=== PATIENT | male | born 1950 | race Caucasian/White ===

== ENCOUNTER 2016-06-09 19:52 | Inpatient (IN) | payer OTHER ==
[~2016-06-09] VITALS: Ht 182.9 cm; Wt 140.1 kg
[~2016-06-09 19:52] MED LIST: AFRIN,GENASAL D15 ML BOTH NARES; ALDACTONE25 MG; ALEVE220 M2 PO; ALEVE220 MG PO; ALLOPURINOL100 MG PO; ALLOPURINOL300 MG PO; ALTACE5 MG PO; AMLODIPINE-BEN1 EACH PO; AQUAPHOR OINTM105 GM; AQUAPHOR OINTM105 GM TP; AQUAPHOR TP; ASCORBIC ACID500 M3 PO; ASPIR 8181 M1 PO; ATARAX,VISTARIL25 M1 PO; ATARAX,VISTARIL25 MG PO; Allopurinol PO; BENADRYL25 MG PO; BENADRYL50 MG PO; BETIMOL 0.100 DROP/5 BOTH EYES; BYSTOLIC5 MG PO; CARDIZEM SR90 MG PO; CARDURA2 M1 PO; CEFEPIME-D2 GM/50 ML IV; CEFTRIAXONE2 G1 IV; CIPROFLOXACIN250 MG PO; CLEOCIN HCL150 MG PO; COREG12.5 M1 PO; COREG6.25 M1 PO; COZAAR100 MG PO; CUBICIN500 MG/10 IV; CYMBALTA60 MG PO; Colace PO; Cozaar PO; Cymbalta PO; DAILY VITAMIN1 EAC8 PO; DILTIAZEM ER60 MG PO; DILTIAZEM PO; DOCUSATE SODIU100 MG PO; DOLOPHINE HCL5 MG PO; DOXAZOSIN; ECOTRIN325 MG PO; ENDOCET 5-3251 EACH PO; Ecotrin PO; FLUOCINONIDE15 G1 TP; FUROSEMIDE40 MG PO; IODOSORB40 GM TP; IRON PO; IRON325 MG PO; KEFLEX500 MG PO; KENALOG,ARISTOC15 G2 PO; KENALOG,ARISTOC15 G2 TP; KENALOG,ARISTOC80 G1 TP; KETOCONAZOLE60 GM TP; KLOR-CON M2020 MEQ PO; LAMASIL; LASIX40 MG PO; LASIX80 MG PO; LEVOFLOXACIN750 MG PO; LEXAPRO10 MG PO; LIDEX 0.05% CRE60 GM TP; LOSARTAN POTASS50 MG PO; LUNESTA2 MG PO; LUNESTA3 MG PO; LYRICA200 MG PO; Lasix PO; Lunesta PO; METHADONE10 MG PO; METHADONE5 MG PO; MILK OF MAG W/360 ML PO; MILK OF MAGN PO; MILK OF MAGNESI10 ML PO; MORPHINE SULFAT15 MG PO; MULTIVITAMIN; NEURONTIN300 MG PO; NUVIGIL150 MG PO; OMEGA 3 FISH OIL; OXECTA5 MG PO; OXYCODONE HCL5 MG PO; PATANOL OP100 DROP/5 BOTH EYES; PERCOCET 5/31 TABLET PO; PHILLIPS'400 MG/5 M PO; PRADAXA150 MG PO; Pradaxa PO; RAMIPRIL5 MG PO; RESTORIL30 MG PO; ROCEPHIN 2 GM VI2 GM IV; ROXICODONE5 MG PO; SIMCOR 500-201 EACH PO; SIMCOR 500/21 TABLET PO; SPIRIVA1 INHALATI IH; TEMAZEPAM30 MG PO; TIMOLOL MALEATE15 M1 BOTH EYES; TIMOPTIC-0100 DROP/1 BOTH EYES; TOLTERODINE TART2 MG PO; TOPAMAX100 MG PO; TRIAMCINOLONE; VIT C; VITAMIN D250000 UNIT PO; VITAMIN D3400 UNI1 PO; WARFARIN SODIUM2 MG PO; XARELTO15 MG PO; XARELTO20 MG PO; ZYLOPRIM300 MG PO; Zocor PO
[2016-06-09 20:52] LABS: HEMATOCRIT 31.1 % (38.0-50.0); MCH 29.2 PG (29.0-34.0); MCHC 32.5 G/DL (30.0-36.0); MCV 89.9 FL (86-99); MEAN PLAT.VOLUME 9.2 uM^3 (9.0-12.4); PLATELET COUNT 119 K/uL (156-360); RBC DIS.WIDTH-CV 14.8 % (11.8-14.6); RBC DIS.WIDTH-SD 46.8 % (39-53); RED BLOOD COUNT 3.46 M/uL (4.00-5.50); WHITE BLOOD COUNT 6.9 K/uL (4.1-10.2)
[2016-06-09 21:03] LABS: CHLORIDE 72 mEq/L (99-109); POTASSIUM 2.8 mEq/L (3.7-5.4)
[2016-06-09 21:04] LABS: GLUCOSE 105 mg/dL (70-99)
[2016-06-09 21:05] LABS: SODIUM 95 mEq/L (136-147)
[2016-06-09 21:06] LABS: ANION GAP 1 MEQ/L (2-14)
[2016-06-09 21:08] LABS: GFR ESTIMATE (CALCULATED) 54 mL/min/
[2016-06-09 21:09] LABS: UREA NITROGEN (BUN) 31 mg/dL (9-23)
[2016-06-09 21:17] LABS: TROP-I INTERPRETATION NEGATIVE; TROPONIN-I 0.03 ng/mL (0.0-0.30)
[2016-06-09 22:50] LABS: GLUCOSE 106 mg/dL (70-99)
[2016-06-09 22:52] LABS: ANION GAP 8 MEQ/L (2-14)
[2016-06-09 22:54] LABS: GFR ESTIMATE (CALCULATED) 59 mL/min/
[2016-06-09 22:55] LABS: CHLORIDE 107 mEq/L (99-109); SODIUM 138 mEq/L (136-147); UREA NITROGEN (BUN) 29 mg/dL (9-23)
[2016-06-09 23:15] LABS: CREATININE 1.2 mg/dL (0.6-1.3); POTASSIUM 4.1 mEq/L (3.7-5.4)
[2016-06-09 23:41] LABS: CREATINE KINASE 158 IU/L (1-294)
[2016-06-09 23:45] LABS: ADD MIUA? NO; BILIRUBIN NEGATIVE; BLOOD NEGATIVE; COLOR YELLOW ((YELLOW)); GLUCOSE (STRIP) NEGATIVE; KETONES NEGATIVE; LEUKOCYTES NEGATIVE; NITRITE NEGATIVE; PROTEIN (STRIP) 30; SPECIFIC GRAVITY 1.016 (1.000-1.030); UCUL ADDED? NO; UROBILINOGEN 0.2 MG/DL (0.2-1.0)
[2016-06-10] VITALS (22 sets, daily range): BP systolic 0–201; BP diastolic 0–137
[2016-06-10 00:30] LABS: HEMATOCRIT 30.7 % (38.0-50.0); MCH 29.1 PG (29.0-34.0); MCHC 32.2 G/DL (30.0-36.0); MCV 90.3 FL (86-99); PLATELET COUNT 117 K/uL (156-360); RBC DIS.WIDTH-CV 14.8 % (11.8-14.6); RBC DIS.WIDTH-SD 46.9 % (39-53); WHITE BLOOD COUNT 6.2 K/uL (4.1-10.2)
[2016-06-10 00:33] LABS: EOSINOPHIL (%) 0.2 % (0-5); IMMATURE GRANULOCYTE (%) 0.6 % (0.0-0.7); IMMATURE GRANULOCYTE COUNT 0.4 K/uL; LYMPHOCYTE COUNT 0.4 K/uL (1.0-2.8); MONOCYTE (%) 3.9 % (3-12); MONOCYTE COUNT 0.2 K/uL (0-0.8); NEUTROPHIL (%) 88.1 % (45-76); NEUTROPHIL COUNT 5.4 K/uL (1.8-6.4)
[2016-06-10 02:10] LABS: METH RESISTANT S AUREUS PCR POSITIVE (NEGATIVE)
[2016-06-10 02:14] LABS: PROBE CHECK PASS
[2016-06-10] MEDS ORDERED: ALTACE5 MG PO ×2 (03:00→09:48)
[2016-06-10] MEDS ORDERED: BYSTOLIC5 MG PO (03:01)
[2016-06-10] MEDS ORDERED: ALTACE10 MG PO (03:01)
[2016-06-10] MEDS ORDERED: NUVIGIL150 MG PO (03:01)
[2016-06-10] MEDS ORDERED: CYMBALTA60 MG PO ×2 (03:04→03:27)
[2016-06-10] MEDS ORDERED: ZYLOPRIM100 MG PO (03:06)
[2016-06-10] MEDS ORDERED: OXYCODONE HCL10 MG PO (03:06)
[2016-06-10] MEDS ORDERED: SANCTURA20 MG PO ×2 (03:08→03:26)
[2016-06-10] MEDS ORDERED: TOPAMAX100 MG PO (03:08)
[2016-06-10] MEDS ORDERED: VITAMIN C500 M1 PO (03:09)
[2016-06-10] MEDS ORDERED: CARDURA4 MG PO (03:23)
[2016-06-10] MEDS ORDERED: METHADONE10 MG PO (03:23)
[2016-06-10] MEDS ORDERED: XARELTO20 MG PO (03:24)
[2016-06-10] MEDS ORDERED: COREG12.5 M1 PO (03:24)
[2016-06-10] MEDS ORDERED: ZINC50 M1 PO (03:25)
[2016-06-10] MEDS ORDERED: TIMOPTIC-0100 DROP/1 BOTH EYES (03:26)
[2016-06-10] MEDS ORDERED: MELATIN3 MG PO (03:27)
[2016-06-10 05:56] LABS: HEMATOCRIT 33.9 % (38.0-50.0); MCH 28.4 PG (29.0-34.0); MCHC 31.3 G/DL (30.0-36.0); MCV 90.9 FL (86-99); MEAN PLAT.VOLUME 9.4 uM^3 (9.0-12.4); PLATELET COUNT 98 K/uL (156-360); RBC DIS.WIDTH-CV 14.8 % (11.8-14.6); RBC DIS.WIDTH-SD 49.7 % (39-53); RED BLOOD COUNT 3.73 M/uL (4.00-5.50); WHITE BLOOD COUNT 7.5 K/uL (4.1-10.2)
[2016-06-10 06:18] LABS: ANION GAP 10 MEQ/L (2-14); CHLORIDE 105 MEQ/L (99-109); GFR ESTIMATE (CALCULATED) 59 mL/min/; GLUCOSE 101 mg/dL (70-99); POTASSIUM 3.7 MEQ/L (3.7-5.4); SAMPLE HEMOLYSIS CHECK 0; SAMPLE ICTERIC CHECK 0; SAMPLE LIPEMIA CHECK 0; SODIUM 135 MEQ/L (136-147); UREA NITROGEN (BUN) 28 mg/dL (9-23)
[2016-06-10 13:24] LABS: MAGNESIUM 2.3 mg/dl (1.3-2.7)
[2016-06-11] VITALS (8 sets, daily range): BP systolic 91–125; BP diastolic 50–77
[2016-06-12] VITALS (11 sets, daily range): BP systolic 127–206; BP diastolic 66–119
[2016-06-12 06:16] LABS: EOSINOPHIL (%) 2.8 % (0-5); EOSINOPHIL COUNT 0.2 K/uL (0-0.3); HEMATOCRIT 30.8 % (38.0-50.0); IMMATURE GRANULOCYTE (%) 0.4 % (0.0-0.7); LYMPHOCYTE COUNT 0.6 K/uL (1.0-2.8); MCH 28.3 PG (29.0-34.0); MCHC 31.8 G/DL (30.0-36.0); MEAN PLAT.VOLUME 9.6 uM^3 (9.0-12.4); MONOCYTE (%) 9.6 % (3-12); MONOCYTE COUNT 0.5 K/uL (0-0.8); NEUTROPHIL (%) 76.8 % (45-76); NEUTROPHIL COUNT 4.3 K/uL (1.8-6.4); PLATELET COUNT 113 K/uL (156-360); RBC DIS.WIDTH-CV 14.8 % (11.8-14.6); RBC DIS.WIDTH-SD 48.2 % (39-53); RED BLOOD COUNT 3.46 M/uL (4.00-5.50); WHITE BLOOD COUNT 5.6 K/uL (4.1-10.2)
[2016-06-12 06:42] LABS: ANION GAP 11 MEQ/L (2-14); CHLORIDE 104 MEQ/L (99-109); GFR ESTIMATE (CALCULATED) > 59 mL/min/; GLUCOSE 114 mg/dL (70-99); POTASSIUM 3.2 MEQ/L (3.7-5.4); SAMPLE HEMOLYSIS CHECK 0; SAMPLE ICTERIC CHECK 0; SAMPLE LIPEMIA CHECK 0; SODIUM 137 MEQ/L (136-147); UREA NITROGEN (BUN) 28 mg/dL (9-23)
[2016-06-13] VITALS: BP 135/63
[2016-06-13 04:00] VITALS: BP 187/72
[2016-06-13 06:09] LABS: HEMATOCRIT 32.2 % (38.0-50.0); MCHC 31.4 G/DL (30.0-36.0); MCV 89.2 FL (86-99); RBC DIS.WIDTH-CV 14.7 % (11.8-14.6); RBC DIS.WIDTH-SD 48.3 % (39-53); RED BLOOD COUNT 3.61 M/uL (4.00-5.50); WHITE BLOOD COUNT 6.3 K/uL (4.1-10.2)
[2016-06-13 06:32] LABS: BASOPHIL COUNT 0.1 K/uL (0-0.1); EOSINOPHIL (%) 2.8 % (0-5); EOSINOPHIL COUNT 0.2 K/uL (0-0.3); IMMATURE GRANULOCYTE (%) 1.1 % (0.0-0.7); IMMATURE GRANULOCYTE COUNT 0.1 K/uL; LYMPHOCYTE COUNT 0.9 K/uL (1.0-2.8); MEAN PLAT.VOLUME 9.6 uM^3 (9.0-12.4); MONOCYTE (%) 9.5 % (3-12); MONOCYTE COUNT 0.6 K/uL (0-0.8); NEUTROPHIL (%) 71.3 % (45-76); NEUTROPHIL COUNT 4.5 K/uL (1.8-6.4)
[2016-06-13 06:36] LABS: PLATELET COUNT 149 K/uL (156-360)
[2016-06-13 06:42] LABS: ANION GAP 9 MEQ/L (2-14); CHLORIDE 107 MEQ/L (99-109); GFR ESTIMATE (CALCULATED) > 59 mL/min/; GLUCOSE 105 mg/dL (70-99); POTASSIUM 3.4 MEQ/L (3.7-5.4); SAMPLE HEMOLYSIS CHECK 0; SAMPLE ICTERIC CHECK 0; SAMPLE LIPEMIA CHECK 0; SODIUM 137 MEQ/L (136-147); UREA NITROGEN (BUN) 23 mg/dL (9-23)
[2016-06-13 08:00] VITALS: BP 168/86
[2016-06-13 08:32] LABS: HEMATOLOGY COMMENT 1 SMEAR COMPATIBLE; USER ID STC
[2016-06-13 12:00] VITALS: BP 147/91
[2016-06-13 16:00] VITALS: BP 170/80
[2016-06-13 20:00] VITALS: BP 163/88
[2016-06-14] VITALS (9 sets, daily range): BP systolic 132–195; BP diastolic 75–112
[2016-06-15] VITALS (7 sets, daily range): BP systolic 99–171; BP diastolic 65–82
[2016-06-15 07:24] LABS: EOSINOPHIL (%) 6.1 % (0-5); EOSINOPHIL COUNT 0.6 K/uL (0-0.3); HEMATOCRIT 34.8 % (38.0-50.0); IMMATURE GRANULOCYTE (%) 1.6 % (0.0-0.7); IMMATURE GRANULOCYTE COUNT 0.2 K/uL; LYMPHOCYTE COUNT 1.4 K/uL (1.0-2.8); MCH 27.7 PG (29.0-34.0); MCHC 30.7 G/DL (30.0-36.0); MCV 90.2 FL (86-99); MEAN PLAT.VOLUME 9.5 uM^3 (9.0-12.4); MONOCYTE (%) 5.6 % (3-12); MONOCYTE COUNT 0.5 K/uL (0-0.8); NEUTROPHIL COUNT 6.7 K/uL (1.8-6.4); RBC DIS.WIDTH-CV 15.1 % (11.8-14.6); RBC DIS.WIDTH-SD 49.8 % (39-53); RED BLOOD COUNT 3.86 M/uL (4.00-5.50)
[2016-06-15 07:32] LABS: PLATELET COUNT 225 K/uL (156-360); WHITE BLOOD COUNT 9.4 K/uL (4.1-10.2)
[2016-06-15 07:34] LABS: ANION GAP 10 MEQ/L (2-14); CHLORIDE 109 MEQ/L (99-109); GFR ESTIMATE (CALCULATED) > 59 mL/min/; GLUCOSE 107 mg/dL (70-99); SAMPLE HEMOLYSIS CHECK 0; SAMPLE ICTERIC CHECK 0; SAMPLE LIPEMIA CHECK 0; SODIUM 140 MEQ/L (136-147); UREA NITROGEN (BUN) 24 mg/dL (9-23)
[2016-06-16 03:05] VITALS: BP 118/61
[2016-06-16 06:36] LABS: HEMATOCRIT 35.7 % (38.0-50.0); MCH 28.9 PG (29.0-34.0); MCHC 31.9 G/DL (30.0-36.0); MCV 90.6 FL (86-99); MEAN PLAT.VOLUME 9.5 uM^3 (9.0-12.4); PLATELET COUNT 255 K/uL (156-360); RED BLOOD COUNT 3.94 M/uL (4.00-5.50); WHITE BLOOD COUNT 10.4 K/uL (4.1-10.2)
[2016-06-16 06:59] LABS: ANION GAP 9 MEQ/L (2-14); CHLORIDE 107 MEQ/L (99-109); GFR ESTIMATE (CALCULATED) > 59 mL/min/; GLUCOSE 106 mg/dL (70-99); SAMPLE HEMOLYSIS CHECK 0; SAMPLE ICTERIC CHECK 0; SAMPLE LIPEMIA CHECK 0; SODIUM 137 MEQ/L (136-147); UREA NITROGEN (BUN) 28 mg/dL (9-23)
[2016-06-16 07:34] LABS: EOSINOPHIL (%) 4.1 % (0-5); EOSINOPHIL COUNT 0.4 K/uL (0-0.3); HEMATOLOGY COMMENT 1 SMEAR COMPATIBLE; IMMATURE GRANULOCYTE (%) 1.2 % (0.0-0.7); IMMATURE GRANULOCYTE COUNT 0.1 K/uL; LYMPHOCYTE COUNT 1.3 K/uL (1.0-2.8); MONOCYTE (%) 5.4 % (3-12); MONOCYTE COUNT 0.6 K/uL (0-0.8); NEUTROPHIL (%) 76.8 % (45-76); PLAT.SUFFICIENCY ADEQUATE
[2016-06-16 09:00] VITALS: BP 109/67
[2016-06-16 12:00] VITALS: BP 118/61
[2016-06-16 16:00] VITALS: BP 105/69
[2016-06-16 20:03] VITALS: BP 141/89
[2016-06-17] VITALS (7 sets, daily range): BP systolic 102–137; BP diastolic 68–82
[2016-06-17 09:08] LABS: HEMATOCRIT 34.1 % (38.0-50.0); MCH 27.9 PG (29.0-34.0); MCHC 31.1 G/DL (30.0-36.0); MCV 89.7 FL (86-99); MEAN PLAT.VOLUME 9.4 uM^3 (9.0-12.4); PLATELET COUNT 279 K/uL (156-360); RBC DIS.WIDTH-CV 14.9 % (11.8-14.6); RBC DIS.WIDTH-SD 49.1 % (39-53); WHITE BLOOD COUNT 9.6 K/uL (4.1-10.2)
[2016-06-17 09:37] LABS: ANION GAP 6 MEQ/L (2-14); CHLORIDE 106 MEQ/L (99-109); GFR ESTIMATE (CALCULATED) > 59 mL/min/; GLUCOSE 116 mg/dL (70-99); MAGNESIUM 2.5 mg/dl (1.3-2.7); POTASSIUM 4.2 MEQ/L (3.7-5.4); SAMPLE HEMOLYSIS CHECK 0; SAMPLE ICTERIC CHECK 0; SAMPLE LIPEMIA CHECK 0; SODIUM 136 MEQ/L (136-147); UREA NITROGEN (BUN) 28 mg/dL (9-23)
[2016-06-18 03:00] VITALS: BP 87/51
[2016-06-18 09:00] VITALS: BP 111/62
[2016-06-18 09:06] LABS: HEMATOCRIT 35.3 % (38.0-50.0); MCH 27.4 PG (29.0-34.0); MCV 91.2 FL (86-99); MEAN PLAT.VOLUME 8.8 uM^3 (9.0-12.4); PLATELET COUNT 284 K/uL (156-360); RBC DIS.WIDTH-CV 15.1 % (11.8-14.6); RBC DIS.WIDTH-SD 50.3 % (39-53); RED BLOOD COUNT 3.87 M/uL (4.00-5.50); WHITE BLOOD COUNT 10.6 K/uL (4.1-10.2)
[2016-06-18 09:21] LABS: ANION GAP 6 MEQ/L (2-14); CHLORIDE 102 MEQ/L (99-109); POTASSIUM 4.3 MEQ/L (3.7-5.4); SAMPLE HEMOLYSIS CHECK 0; SAMPLE ICTERIC CHECK 0; SAMPLE LIPEMIA CHECK 0; SODIUM 134 MEQ/L (136-147)
[2016-06-18 09:26] LABS: GFR ESTIMATE (CALCULATED) 59 mL/min/; GLUCOSE 116 mg/dL (70-99); UREA NITROGEN (BUN) 31 mg/dL (9-23)
[2016-06-18 12:42] VITALS: BP 110/59
[2016-06-18 15:38] LABS: C DIFF TOXIN NEGATIVE (NEGATIVE)
[2016-06-18 15:39] LABS: PROBE CHECK PASS; SPECIMEN PROCESSING CONTROL PASS
[2016-06-18 16:25] VITALS: BP 126/58
[2016-06-18 20:15] VITALS: BP 119/69
[2016-06-19] VITALS: BP 122/66
[2016-06-19 03:51] VITALS: BP 139/82
[2016-06-19 09:41] VITALS: BP 130/92
[2016-06-19 10:37] LABS: HEMATOCRIT 35.8 % (38.0-50.0); MCH 28.9 PG (29.0-34.0); MCHC 31.8 G/DL (30.0-36.0); MCV 90.9 FL (86-99); MEAN PLAT.VOLUME 9.2 uM^3 (9.0-12.4); PLATELET COUNT 317 K/uL (156-360); RBC DIS.WIDTH-CV 15.2 % (11.8-14.6); RBC DIS.WIDTH-SD 50.9 % (39-53); RED BLOOD COUNT 3.94 M/uL (4.00-5.50); WHITE BLOOD COUNT 8.8 K/uL (4.1-10.2)
[2016-06-19 11:02] LABS: ANION GAP 9 MEQ/L (2-14); CHLORIDE 105 MEQ/L (99-109); GFR ESTIMATE (CALCULATED) > 59 mL/min/; GLUCOSE 120 mg/dL (70-99); POTASSIUM 4.5 MEQ/L (3.7-5.4); SAMPLE HEMOLYSIS CHECK 0; SAMPLE ICTERIC CHECK 0; SAMPLE LIPEMIA CHECK 0; SODIUM 137 MEQ/L (136-147); UREA NITROGEN (BUN) 28 mg/dL (9-23)
[2016-06-19 15:41] VITALS: BP 140/78
[2016-06-19 20:00] VITALS: BP 127/89
[2016-06-20] VITALS: BP 127/69
[2016-06-20 08:32] VITALS: BP 129/66
[2016-06-20] MEDS ORDERED: AMLODIPINE BESY10 MG PO (11:16)
[2016-06-20] MEDS ORDERED: RAMIPRIL5 MG PO (11:16)
[2016-06-20] MEDS ORDERED: LEVETIRACETAM750 MG PO (11:16)
[2016-06-20] MEDS ORDERED: RAMIPRIL10 MG PO (11:16)
== END 2016-06-20 13:51 | DRG 871 ==
LOC: EME → EDBD 19:52 → EDOF 22:27 → 4WEST 22:27 → 4EAST 22:27 → 4WEST 06-10 00:48 → 4EAST 06-14 19:41 → 4SOUTH 06-18 16:12
PROVIDERS: Emergency Medicine; Internal Medicine; Internal Medicine Critical Care Medicine; Physician Assistant
DX: A40.9 Streptococcal sepsis, unspecified (principal); S06.6X9A Traumatic subarachnoid hemorrhage with loss of consciousness of unspecified duration, initial encounter; W19.XXXA Unspecified fall, initial encounter; L51.1 Stevens-Johnson syndrome; E87.1 Hypo-osmolality and hyponatremia; L03.116 Cellulitis of left lower limb; L97.921 Non-pressure chronic ulcer of unspecified part of left lower leg limited to breakdown of skin; L97.911 Non-pressure chronic ulcer of unspecified part of right lower leg limited to breakdown of skin; Y92.013 Bedroom of single-family (private) house as the place of occurrence of the external cause; I83.218 Varicose veins of right lower extremity with both ulcer of other part of lower extremity and inflammation; I83.228 Varicose veins of left lower extremity with both ulcer of other part of lower extremity and inflammation; Z68.41 Body mass index [BMI] 40.0-44.9, adult; I13.0 Hypertensive heart and chronic kidney disease with heart failure and stage 1 through stage 4 chronic kidney disease, or unspecified chronic kidney disease; N18.9 Chronic kidney disease, unspecified; I48.2 Chronic atrial fibrillation; M10.9 Gout, unspecified; I50.9 Heart failure, unspecified; G47.419 Narcolepsy without cataplexy; E66.01 Morbid (severe) obesity due to excess calories; Z95.0 Presence of cardiac pacemaker; R32 Unspecified urinary incontinence; D69.6 Thrombocytopenia, unspecified; Z89.421 Acquired absence of other right toe(s); L27.0 Generalized skin eruption due to drugs and medicaments taken internally; T36.1X5A Adverse effect of cephalosporins and other beta-lactam antibiotics, initial encounter; R56.9 Unspecified convulsions; S63.501A Unspecified sprain of right wrist, initial encounter; R25.1 Tremor, unspecified
CPT/HCPCS: 70450; 70496; 71010; 73110; 74000; 80047; 80048; 80048 91; 81003; 82550 91; 83605; 83735; 84100; 84484; 85025; 85027; 87040; 87077; 87493; 87641; 87801; 93005; 93306; 93971; 94799; 95819; 97530 GO; 97530 GP; 99281; 99285; J0696; J0878; J1200; J1940; J7030; J7050

== ENCOUNTER 2016-08-30 14:22 | Inpatient (IN) | payer OTHER ==
[~2016-08-30] VITALS: Ht 185.4 cm; Wt 134.9 kg
[~2016-08-30 14:22] MED LIST changes: +ALTACE10 MG PO; +AMLODIPINE BESY10 MG PO; +CARDURA4 MG PO; +LEVETIRACETAM750 MG PO; +MELATIN3 MG PO; +OXYCODONE HCL10 MG PO; +RAMIPRIL10 MG PO; +SANCTURA20 MG PO; +VITAMIN C500 M1 PO; +ZINC50 M1 PO; +ZYLOPRIM100 MG PO
[2016-08-30 15:30] LABS: EOSINOPHIL (%) 2.9 % (0-5); EOSINOPHIL COUNT 0.2 K/uL (0-0.3); HEMATOCRIT 31.4 % (38.0-50.0); IMMATURE GRANULOCYTE (%) 0.7 % (0.0-0.7); INSTRUMENT ABS NEUTROPHIL CT 4.5 K/uL; LYMPHOCYTE COUNT 0.7 K/uL (1.0-2.8); MCH 28.5 PG (29.0-34.0); MCHC 30.6 G/DL (30.0-36.0); MCV 93.2 FL (86-99); MEAN PLAT.VOLUME 8.5 uM^3 (9.0-12.4); MONOCYTE (%) 7.8 % (3-12); MONOCYTE COUNT 0.5 K/uL (0-0.8); NEUTROPHIL (%) 75.8 % (45-76); NEUTROPHIL COUNT 4.5 K/uL (1.8-6.4); PLATELET COUNT 133 K/uL (156-360); RBC DIS.WIDTH-CV 16.5 % (11.8-14.6); RBC DIS.WIDTH-SD 56.3 % (39-53); RED BLOOD COUNT 3.37 M/uL (4.00-5.50); WHITE BLOOD COUNT 5.9 K/uL (4.1-10.2)
[2016-08-30 15:41] LABS: CHLORIDE 109 mEq/L (99-109); POTASSIUM 4.8 mEq/L (3.7-5.4); SODIUM 140 mEq/L (136-147)
[2016-08-30 15:43] LABS: GLUCOSE 116 mg/dL (70-99)
[2016-08-30 15:45] LABS: ANION GAP 8 MEQ/L (2-14); TOTAL BILIRUBIN 0.5 mg/dL (0.0-1.0)
[2016-08-30 15:47] LABS: ALKALINE PHOSPHATASE 72 IU/L (3-129); GFR ESTIMATE (CALCULATED) 54 mL/min/
[2016-08-30 15:48] LABS: UREA NITROGEN (BUN) 26 mg/dL (9-23)
[2016-08-30 15:50] LABS: TROP-I INTERPRETATION NEGATIVE; TROPONIN-I < 0.01 ng/mL (0.0-0.30)
[2016-08-30 16:47] LABS: D-DIMER ELISA 2.59 mg/L FEU (< 0.57)
[2016-08-30] MEDS ORDERED: K-DUR10 MEQ PO (18:00)
[2016-08-30] MEDS ORDERED: SPIRIVA1 INHALATI IH (18:00)
[2016-08-30] MEDS ORDERED: OXYCODONE HCL20 M1 PO (18:00)
[2016-08-30] MEDS ORDERED: FUROSEMIDE40 MG PO (18:00)
[2016-08-30] MEDS ORDERED: AMLODIPINE BESY10 MG PO (18:01)
[2016-08-30] MEDS ORDERED: RAMIPRIL5 MG PO (18:02)
[2016-08-30] MEDS ORDERED: DETROL2 MG PO (18:04)
[2016-08-30] MEDS ORDERED: PHILLIPS'400 MG/5 M PO (18:06)
[2016-08-30] MEDS ORDERED: MUPIROCIN22 GM TP (18:07)
[2016-08-30 20:41] LABS: BASE EXCESS -2.5 mEq/L (-3 to +3); BICARBONATE 23.2 mEq/L (22-26); COMMENTS - BLOOD GASES A+C+; DEVICE HFNC; METHEMOGLOBIN 0.8 % (0-1.5); O2 FLOW 12 L/MIN; PCO2 43 mm Hg (35-45); PO2 60 mm Hg (80-100); SITE RR; TOTAL RESP RATE 30 resp/min; pH 7.34 (7.35-7.45)
[2016-08-30 22:38] VITALS: BP 136/91
[2016-08-30 23:33] LABS: METH RESISTANT S AUREUS PCR POSITIVE (NEGATIVE)
[2016-08-30 23:47] LABS: PROBE CHECK PASS
[2016-08-31 04:04] VITALS: BP 110/52
[2016-08-31 06:42] LABS: HEMATOCRIT 26.7 % (38.0-50.0); MCH 29.2 PG (29.0-34.0); MCHC 31.5 G/DL (30.0-36.0); MCV 92.7 FL (86-99); MEAN PLAT.VOLUME 8.7 uM^3 (9.0-12.4); PLATELET COUNT 111 K/uL (156-360); RBC DIS.WIDTH-CV 16.1 % (11.8-14.6); RBC DIS.WIDTH-SD 54.6 % (39-53); RED BLOOD COUNT 2.88 M/uL (4.00-5.50); WHITE BLOOD COUNT 4.6 K/uL (4.1-10.2)
[2016-08-31 08:31] VITALS: BP 152/74
[2016-08-31 09:29] LABS: ANION GAP 7 MEQ/L (2-14); CHLORIDE 107 MEQ/L (99-109); GFR ESTIMATE (CALCULATED) 59 mL/min/; POTASSIUM 4.8 MEQ/L (3.7-5.4); SAMPLE HEMOLYSIS CHECK 0; SAMPLE ICTERIC CHECK 0; SAMPLE LIPEMIA CHECK 0; SODIUM 137 MEQ/L (136-147); UREA NITROGEN (BUN) 26 mg/dL (9-23)
[2016-08-31 09:33] LABS: GLUCOSE 181 mg/dL (70-99)
[2016-08-31 13:33] VITALS: BP 133/72
[2016-08-31 15:12] LABS: INTER. NORMALIZED RATIO 1.2; PROTHROMBIN TIME 12.2 (9.2-11.2)
[2016-08-31 16:43] VITALS: BP 151/73
[2016-08-31 19:10] VITALS: BP 135/84
[2016-08-31 23:23] VITALS: BP 155/79
[2016-09-01 03:02] VITALS: BP 136/86
[2016-09-01 03:56] LABS: EOSINOPHIL (%) 0 % (0-5); HEMATOCRIT 29.1 % (38.0-50.0); IMMATURE GRANULOCYTE (%) 0.4 % (0.0-0.7); INSTRUMENT ABS NEUTROPHIL CT 4.3 K/uL; LYMPHOCYTE COUNT 0.7 K/uL (1.0-2.8); MCH 28.5 PG (29.0-34.0); MCHC 30.9 G/DL (30.0-36.0); MCV 92.1 FL (86-99); MEAN PLAT.VOLUME 8.7 uM^3 (9.0-12.4); MONOCYTE (%) 3.5 % (3-12); MONOCYTE COUNT 0.2 K/uL (0-0.8); NEUTROPHIL (%) 83.2 % (45-76); NEUTROPHIL COUNT 4.3 K/uL (1.8-6.4); PLATELET COUNT 130 K/uL (156-360); RBC DIS.WIDTH-CV 15.9 % (11.8-14.6); RBC DIS.WIDTH-SD 53.1 % (39-53); RED BLOOD COUNT 3.16 M/uL (4.00-5.50); WHITE BLOOD COUNT 5.1 K/uL (4.1-10.2)
[2016-09-01 04:20] LABS: CHLORIDE 108 mEq/L (99-109); POTASSIUM 4.8 mEq/L (3.7-5.4); SODIUM 139 mEq/L (136-147)
[2016-09-01 04:22] LABS: GLUCOSE 133 mg/dL (70-99)
[2016-09-01 04:23] LABS: ANION GAP 9 MEQ/L (2-14)
[2016-09-01 04:26] LABS: GFR ESTIMATE (CALCULATED) 59 mL/min/; UREA NITROGEN (BUN) 35 mg/dL (9-23)
[2016-09-01 08:40] VITALS: BP 154/88
[2016-09-01 12:56] VITALS: BP 141/72
[2016-09-01 16:35] VITALS: BP 157/78
[2016-09-01 20:18] VITALS: BP 137/74
[2016-09-02 00:38] VITALS: BP 170/76
[2016-09-02 05:04] VITALS: BP 142/67
[2016-09-02 07:48] LABS: EOSINOPHIL (%) 0 % (0-5); HEMATOCRIT 29.6 % (38.0-50.0); IMMATURE GRANULOCYTE (%) 0.6 % (0.0-0.7); INSTRUMENT ABS NEUTROPHIL CT 5.2 K/uL; MCHC 31.4 G/DL (30.0-36.0); MCV 92.2 FL (86-99); MEAN PLAT.VOLUME 9.5 uM^3 (9.0-12.4); MONOCYTE (%) 6.1 % (3-12); MONOCYTE COUNT 0.4 K/uL (0-0.8); NEUTROPHIL (%) 78.1 % (45-76); NEUTROPHIL COUNT 5.2 K/uL (1.8-6.4); PLATELET COUNT 157 K/uL (156-360); RBC DIS.WIDTH-CV 16.2 % (11.8-14.6); RBC DIS.WIDTH-SD 54.1 % (39-53); RED BLOOD COUNT 3.21 M/uL (4.00-5.50)
[2016-09-02 07:52] LABS: WHITE BLOOD COUNT 6.7 K/uL (4.1-10.2)
[2016-09-02 08:08] LABS: ANION GAP 8 MEQ/L (2-14); CHLORIDE 106 MEQ/L (99-109); GFR ESTIMATE (CALCULATED) > 59 mL/min/; GLUCOSE 109 mg/dL (70-99); SAMPLE HEMOLYSIS CHECK 0; SAMPLE ICTERIC CHECK 0; SAMPLE LIPEMIA CHECK 0; SODIUM 138 MEQ/L (136-147); UREA NITROGEN (BUN) 37 mg/dL (9-23)
[2016-09-02 08:47] VITALS: BP 159/90
[2016-09-02 12:39] VITALS: BP 138/82
[2016-09-02 17:56] VITALS: BP 152/88
[2016-09-02 20:00] VITALS: BP 133/74
[2016-09-03] VITALS: BP 144/78
[2016-09-03 04:30] VITALS: BP 170/80
[2016-09-03 06:16] LABS: EOSINOPHIL (%) 0 % (0-5); HEMATOCRIT 29.9 % (38.0-50.0); IMMATURE GRANULOCYTE (%) 1.3 % (0.0-0.7); IMMATURE GRANULOCYTE COUNT 0.1 K/uL; INSTRUMENT ABS NEUTROPHIL CT 4.7 K/uL; MCH 28.1 PG (29.0-34.0); MCHC 31.1 G/DL (30.0-36.0); MCV 90.3 FL (86-99); MEAN PLAT.VOLUME 8.9 uM^3 (9.0-12.4); MONOCYTE (%) 7.8 % (3-12); MONOCYTE COUNT 0.5 K/uL (0-0.8); NEUTROPHIL (%) 74.8 % (45-76); NEUTROPHIL COUNT 4.7 K/uL (1.8-6.4); PLATELET COUNT 148 K/uL (156-360); RBC DIS.WIDTH-CV 15.9 % (11.8-14.6); RBC DIS.WIDTH-SD 52.8 % (39-53); RED BLOOD COUNT 3.31 M/uL (4.00-5.50); WHITE BLOOD COUNT 6.3 K/uL (4.1-10.2)
[2016-09-03 06:40] LABS: ANION GAP 8 MEQ/L (2-14); CHLORIDE 104 MEQ/L (99-109); GFR ESTIMATE (CALCULATED) > 59 mL/min/; GLUCOSE 121 mg/dL (70-99); POTASSIUM 4.2 MEQ/L (3.7-5.4); SAMPLE HEMOLYSIS CHECK 0; SAMPLE ICTERIC CHECK 0; SAMPLE LIPEMIA CHECK 0; SODIUM 136 MEQ/L (136-147); UREA NITROGEN (BUN) 39 mg/dL (9-23)
[2016-09-03 07:45] VITALS: BP 156/85
[2016-09-03 12:42] VITALS: BP 156/87
[2016-09-03 16:58] VITALS: BP 132/72
[2016-09-03 18:55] VITALS: BP 128/68
[2016-09-04 00:35] VITALS: BP 132/60
[2016-09-04 06:52] LABS: EOSINOPHIL (%) 0.3 % (0-5); HEMATOCRIT 30.8 % (38.0-50.0); IMMATURE GRANULOCYTE (%) 1.7 % (0.0-0.7); IMMATURE GRANULOCYTE COUNT 0.1 K/uL; INSTRUMENT ABS NEUTROPHIL CT 4.1 K/uL; LYMPHOCYTE COUNT 1.3 K/uL (1.0-2.8); MCH 28.4 PG (29.0-34.0); MCHC 31.5 G/DL (30.0-36.0); MCV 90.1 FL (86-99); MEAN PLAT.VOLUME 9.3 uM^3 (9.0-12.4); MONOCYTE (%) 10.1 % (3-12); MONOCYTE COUNT 0.6 K/uL (0-0.8); NEUTROPHIL (%) 66.7 % (45-76); NEUTROPHIL COUNT 4.1 K/uL (1.8-6.4); NRBC (%) 0.5 /100 WBC (0-0); PLATELET COUNT 130 K/uL (156-360); RBC DIS.WIDTH-CV 15.8 % (11.8-14.6); RBC DIS.WIDTH-SD 51.3 % (39-53); RED BLOOD COUNT 3.42 M/uL (4.00-5.50); WHITE BLOOD COUNT 6.1 K/uL (4.1-10.2)
[2016-09-04 07:15] LABS: ANION GAP 5 MEQ/L (2-14); CHLORIDE 103 MEQ/L (99-109); GFR ESTIMATE (CALCULATED) > 59 mL/min/; SAMPLE HEMOLYSIS CHECK 0; SAMPLE ICTERIC CHECK 0; SAMPLE LIPEMIA CHECK 0; SODIUM 138 MEQ/L (136-147); UREA NITROGEN (BUN) 37 mg/dL (9-23)
[2016-09-04 07:18] LABS: GLUCOSE 90 mg/dL (70-99)
[2016-09-04 10:32] VITALS: BP 138/84
[2016-09-04 11:43] VITALS: BP 144/90
[2016-09-04 16:33] VITALS: BP 130/76
[2016-09-04 20:55] VITALS: BP 132/68
[2016-09-04 23:50] VITALS: BP 120/70
[2016-09-05 04:00] VITALS: BP 124/64
[2016-09-05 06:21] LABS: EOSINOPHIL (%) 0.4 % (0-5); IMMATURE GRANULOCYTE (%) 1.6 % (0.0-0.7); IMMATURE GRANULOCYTE COUNT 0.1 K/uL; INSTRUMENT ABS NEUTROPHIL CT 4.9 K/uL; LYMPHOCYTE COUNT 1.2 K/uL (1.0-2.8); MCH 28.4 PG (29.0-34.0); MCHC 31.6 G/DL (30.0-36.0); MCV 89.9 FL (86-99); MEAN PLAT.VOLUME 9.4 uM^3 (9.0-12.4); MONOCYTE (%) 11.1 % (3-12); MONOCYTE COUNT 0.8 K/uL (0-0.8); NEUTROPHIL (%) 70.2 % (45-76); NEUTROPHIL COUNT 4.9 K/uL (1.8-6.4); NRBC (%) 0.3 /100 WBC (0-0); PLATELET COUNT 141 K/uL (156-360); RBC DIS.WIDTH-CV 15.7 % (11.8-14.6); RBC DIS.WIDTH-SD 51.3 % (39-53); RED BLOOD COUNT 3.45 M/uL (4.00-5.50)
[2016-09-05 06:57] LABS: ANION GAP 6 MEQ/L (2-14); CHLORIDE 102 MEQ/L (99-109); GFR ESTIMATE (CALCULATED) > 59 mL/min/; SAMPLE HEMOLYSIS CHECK 0; SAMPLE ICTERIC CHECK 0; SAMPLE LIPEMIA CHECK 0; SODIUM 135 MEQ/L (136-147); UREA NITROGEN (BUN) 39 mg/dL (9-23)
[2016-09-05 07:01] LABS: GLUCOSE 113 mg/dL (70-99)
[2016-09-05 09:15] VITALS: BP 124/72
[2016-09-05 11:56] VITALS: BP 104/62
[2016-09-05 17:03] VITALS: BP 108/64
[2016-09-05 19:40] VITALS: BP 136/72
[2016-09-06 00:30] VITALS: BP 128/76
[2016-09-06 03:45] VITALS: BP 142/76
[2016-09-06 07:35] VITALS: BP 135/81
[2016-09-06] MEDS ORDERED: XARELTO15 MG PO (12:11)
[2016-09-06] MEDS ORDERED: NYSTATIN15 GM TP (12:12)
[2016-09-06] MEDS ORDERED: FAMOTIDINE20 MG PO (12:12)
[2016-09-06] MEDS ORDERED: LEVAQUIN750 MG PO (12:14)
== END 2016-09-06 13:40 | disposition home health service (06) | DRG 175 ==
LOC: EME 14:22 → EDOF 20:30 → 4EAST 20:30
PROVIDERS: Emergency Medicine; Hospitalist; Internal Medicine
DX: I26.99 Other pulmonary embolism without acute cor pulmonale (principal); J96.01 Acute respiratory failure with hypoxia; I50.33 Acute on chronic diastolic (congestive) heart failure; J18.9 Pneumonia, unspecified organism; I27.2 Other secondary pulmonary hypertension; I82.531 Chronic embolism and thrombosis of right popliteal vein; J44.0 Chronic obstructive pulmonary disease with (acute) lower respiratory infection; Z95.828 Presence of other vascular implants and grafts; Z86.73 Personal history of transient ischemic attack (TIA), and cerebral infarction without residual deficits; Z95.0 Presence of cardiac pacemaker; L10.89 Other pemphigus; E66.01 Morbid (severe) obesity due to excess calories; Z68.41 Body mass index [BMI] 40.0-44.9, adult; J44.1 Chronic obstructive pulmonary disease with (acute) exacerbation; I87.8 Other specified disorders of veins; I13.0 Hypertensive heart and chronic kidney disease with heart failure and stage 1 through stage 4 chronic kidney disease, or unspecified chronic kidney disease; L03.116 Cellulitis of left lower limb; L03.115 Cellulitis of right lower limb; Z89.421 Acquired absence of other right toe(s); I89.0 Lymphedema, not elsewhere classified; I83.208 Varicose veins of unspecified lower extremity with both ulcer of other part of lower extremity and inflammation; L97.811 Non-pressure chronic ulcer of other part of right lower leg limited to breakdown of skin; L97.821 Non-pressure chronic ulcer of other part of left lower leg limited to breakdown of skin; Y95 Nosocomial condition; I48.2 Chronic atrial fibrillation; G62.9 Polyneuropathy, unspecified; S06.6X9D Traumatic subarachnoid hemorrhage with loss of consciousness of unspecified duration, subsequent encounter; W13.4XXD Fall from, out of or through window, subsequent encounter; E78.5 Hyperlipidemia, unspecified; G47.33 Obstructive sleep apnea (adult) (pediatric); Z91.19 Patient's noncompliance with other medical treatment and regimen; I25.10 Atherosclerotic heart disease of native coronary artery without angina pectoris; Z87.891 Personal history of nicotine dependence; D69.6 Thrombocytopenia, unspecified; N18.3 Chronic kidney disease, stage 3 (moderate); I77.819 Aortic ectasia, unspecified site; G89.29 Other chronic pain
CPT/HCPCS: 36600; 71010; 71020; 78582; 80048; 80053; 82803; 83605; 83735; 84484; 85025; 85027; 85379; 85610; 85730; 87040; 87641; 93005; 93970; 94640; 94640 76; 94660; 94760; 94799; 99202; 99281; 99285; A6260; A9540; A9567; J0456; J0692; J1940; J2930; J7050; J7512

== ENCOUNTER 2016-11-08 13:57 | Inpatient (IN) | payer OTHER ==
[~2016-11-08] VITALS: Ht 185.4 cm; Wt 144.9 kg
[~2016-11-08 13:57] MED LIST changes: +DETROL2 MG PO; +FAMOTIDINE20 MG PO; +K-DUR10 MEQ PO; +LEVAQUIN750 MG PO; +MUPIROCIN22 GM TP; +NYSTATIN15 GM TP; +OXYCODONE HCL20 M1 PO
[2016-11-08 14:47] LABS: EOSINOPHIL (%) 1.9 % (0-5); EOSINOPHIL COUNT 0.2 K/uL (0-0.3); HEMATOCRIT 32.7 % (38.0-50.0); IMMATURE GRANULOCYTE (%) 0.5 % (0.0-0.7); INSTRUMENT ABS NEUTROPHIL CT 6.9 K/uL; LYMPHOCYTE COUNT 0.9 K/uL (1.0-2.8); MCH 28.1 PG (29.0-34.0); MCHC 32.1 G/DL (30.0-36.0); MCV 87.4 FL (86-99); MEAN PLAT.VOLUME 8.9 uM^3 (9.0-12.4); MONOCYTE (%) 6.6 % (3-12); MONOCYTE COUNT 0.6 K/uL (0-0.8); NEUTROPHIL (%) 79.9 % (45-76); NEUTROPHIL COUNT 6.9 K/uL (1.8-6.4); PLATELET COUNT 130 K/uL (156-360); RBC DIS.WIDTH-CV 14.7 % (11.8-14.6); RBC DIS.WIDTH-SD 47.1 % (39-53); RED BLOOD COUNT 3.74 M/uL (4.00-5.50); WHITE BLOOD COUNT 8.6 K/uL (4.1-10.2)
[2016-11-08 14:54] LABS: CHLORIDE 101 mEq/L (99-109); POTASSIUM 4.9 mEq/L (3.7-5.4); SODIUM 136 mEq/L (136-147)
[2016-11-08 14:55] LABS: GLUCOSE 139 mg/dL (70-99)
[2016-11-08 14:57] LABS: ANION GAP 10 MEQ/L (2-14)
[2016-11-08 14:59] LABS: GFR ESTIMATE (CALCULATED) 46 mL/min/
[2016-11-08 15:00] LABS: UREA NITROGEN (BUN) 28 mg/dL (9-23)
[2016-11-08] MEDS ORDERED: XARELTO20 MG PO (17:31)
[2016-11-08] MEDS ORDERED: COREG12.5 M1 PO (17:32)
[2016-11-08 17:33] LABS: TROP-I INTERPRETATION NEGATIVE; TROPONIN-I < 0.01 ng/mL (0.0-0.30)
[2016-11-08] MEDS ORDERED: INCRUSE ELLI62.5 MCG IH (17:33)
[2016-11-08 18:22] VITALS: BP 121/65
[2016-11-08 23:44] VITALS: BP 94/54
[2016-11-08 23:47] LABS: TROP-I INTERPRETATION NEGATIVE; TROPONIN-I 0.01 ng/mL (0.0-0.30)
[2016-11-09 05:07] LABS: EOSINOPHIL (%) 2.3 % (0-5); EOSINOPHIL COUNT 0.2 K/uL (0-0.3); HEMATOCRIT 29.9 % (38.0-50.0); IMMATURE GRANULOCYTE (%) 0.6 % (0.0-0.7); IMMATURE GRANULOCYTE COUNT 0.1 K/uL; INSTRUMENT ABS NEUTROPHIL CT 6.3 K/uL; MCH 29.2 PG (29.0-34.0); MCHC 32.8 G/DL (30.0-36.0); MEAN PLAT.VOLUME 9.3 uM^3 (9.0-12.4); MONOCYTE COUNT 0.6 K/uL (0-0.8); NEUTROPHIL (%) 77.4 % (45-76); NEUTROPHIL COUNT 6.3 K/uL (1.8-6.4); PLATELET COUNT 130 K/uL (156-360); RBC DIS.WIDTH-CV 14.9 % (11.8-14.6); RBC DIS.WIDTH-SD 48.4 % (39-53); RED BLOOD COUNT 3.36 M/uL (4.00-5.50); WHITE BLOOD COUNT 8.1 K/uL (4.1-10.2)
[2016-11-09 05:26] LABS: TROP-I INTERPRETATION NEGATIVE; TROPONIN-I 0.01 ng/mL (0.0-0.30)
[2016-11-09 05:39] LABS: ANION GAP 8 MEQ/L (2-14); CHLORIDE 103 MEQ/L (99-109); GFR ESTIMATE (CALCULATED) 50 mL/min/; GLUCOSE 155 mg/dL (70-99); POTASSIUM 4.6 MEQ/L (3.7-5.4); SAMPLE HEMOLYSIS CHECK 0; SAMPLE ICTERIC CHECK 0; SAMPLE LIPEMIA CHECK 0; SODIUM 135 MEQ/L (136-147); UREA NITROGEN (BUN) 27 mg/dL (9-23)
[2016-11-09 07:51] LABS: ADD MIUA? NO; BILIRUBIN NEGATIVE; BLOOD NEGATIVE; COLOR YELLOW ((YELLOW)); GLUCOSE (STRIP) NEGATIVE; KETONES NEGATIVE; LEUKOCYTES NEGATIVE; NITRITE NEGATIVE; PROTEIN (STRIP) NEGATIVE; SPECIFIC GRAVITY 1.019 (1.000-1.030); UCUL ADDED? NO; UROBILINOGEN 0.2 MG/DL (0.2-1.0)
[2016-11-09 08:22] LABS: INTERNAL CONTROL VALID? YES
[2016-11-09 09:01] VITALS: BP 110/68
[2016-11-09 14:59] LABS: ANION GAP 7 MEQ/L (2-14); CHLORIDE 103 MEQ/L (99-109); GFR ESTIMATE (CALCULATED) 54 mL/min/; GLUCOSE 138 mg/dL (70-99); POTASSIUM 4.7 MEQ/L (3.7-5.4); SAMPLE HEMOLYSIS CHECK 0; SAMPLE ICTERIC CHECK 0; SAMPLE LIPEMIA CHECK 0; SODIUM 135 MEQ/L (136-147); UREA NITROGEN (BUN) 28 mg/dL (9-23)
[2016-11-09 15:38] VITALS: BP 116/70
[2016-11-09 23:49] VITALS: BP 100/50
[2016-11-10 06:23] LABS: HEMATOCRIT 26.4 % (38.0-50.0); MCH 28.4 PG (29.0-34.0); MCHC 31.8 G/DL (30.0-36.0); MCV 89.2 FL (86-99); MEAN PLAT.VOLUME 9.7 uM^3 (9.0-12.4); PLATELET COUNT 116 K/uL (156-360); RBC DIS.WIDTH-CV 14.8 % (11.8-14.6); RBC DIS.WIDTH-SD 48.2 % (39-53); RED BLOOD COUNT 2.96 M/uL (4.00-5.50); WHITE BLOOD COUNT 6.4 K/uL (4.1-10.2)
[2016-11-10 07:00] LABS: ANION GAP 6 MEQ/L (2-14); CHLORIDE 103 MEQ/L (99-109); GFR ESTIMATE (CALCULATED) 54 mL/min/; POTASSIUM 4.6 MEQ/L (3.7-5.4); SAMPLE HEMOLYSIS CHECK 0; SAMPLE ICTERIC CHECK 0; SAMPLE LIPEMIA CHECK 0; SODIUM 133 MEQ/L (136-147); UREA NITROGEN (BUN) 32 mg/dL (9-23)
[2016-11-10 07:03] LABS: GLUCOSE 99 mg/dL (70-99)
[2016-11-10 08:10] VITALS: BP 102/58
[2016-11-10 10:02] LABS: INTERNAL CONTROL VALID? YES
[2016-11-10 12:47] LABS: TROP-I INTERPRETATION NEGATIVE; TROPONIN-I < 0.01 ng/mL (0.0-0.30)
[2016-11-10 16:18] VITALS: BP 114/66
[2016-11-11] VITALS: BP 130/55
[2016-11-11 07:36] VITALS: BP 113/66
[2016-11-11 08:50] LABS: MCH 28.5 PG (29.0-34.0); MCHC 32.2 G/DL (30.0-36.0); MCV 88.5 FL (86-99); MEAN PLAT.VOLUME 9.1 uM^3 (9.0-12.4); PLATELET COUNT 118 K/uL (156-360); RBC DIS.WIDTH-CV 14.7 % (11.8-14.6); RBC DIS.WIDTH-SD 47.6 % (39-53); RED BLOOD COUNT 3.05 M/uL (4.00-5.50); WHITE BLOOD COUNT 5.3 K/uL (4.1-10.2)
[2016-11-11 09:05] LABS: ANION GAP 6 MEQ/L (2-14); CHLORIDE 104 MEQ/L (99-109); POTASSIUM 4.4 MEQ/L (3.7-5.4); SAMPLE HEMOLYSIS CHECK 0; SAMPLE ICTERIC CHECK 0; SAMPLE LIPEMIA CHECK 0; SODIUM 132 MEQ/L (136-147)
[2016-11-11 09:11] LABS: GFR ESTIMATE (CALCULATED) > 59 mL/min/; GLUCOSE 103 mg/dL (70-99); UREA NITROGEN (BUN) 27 mg/dL (9-23)
[2016-11-11 15:10] VITALS: BP 119/64
[2016-11-12] VITALS: BP 101/58
[2016-11-12 08:16] VITALS: BP 119/73
[2016-11-12 08:45] LABS: ANION GAP 7 MEQ/L (2-14); CHLORIDE 106 MEQ/L (99-109); GFR ESTIMATE (CALCULATED) > 59 mL/min/; GLUCOSE 109 mg/dL (70-99); POTASSIUM 4.8 MEQ/L (3.7-5.4); SAMPLE HEMOLYSIS CHECK 0; SAMPLE ICTERIC CHECK 0; SAMPLE LIPEMIA CHECK 0; SODIUM 136 MEQ/L (136-147); UREA NITROGEN (BUN) 23 mg/dL (9-23)
[2016-11-12] MEDS ORDERED: LEVAQUIN750 MG PO (09:49)
[2016-11-12] MEDS ORDERED: OXYCODONE HCL20 M1 PO (12:25)
== END 2016-11-12 17:44 | disposition home health service (06) | DRG 193 ==
LOC: EME 13:57 → 5SOUTH 16:12 → EDOF 16:12 → 5SOUTH 17:43
PROVIDERS: Emergency Medicine; Internal Medicine; Nurse Practitioner Adult Health; Physician Assistant Medical
PROC: 5A09357 Assistance with Respiratory Ventilation, Less than 24 Consecutive Hours, Continuous Positive Airway Pressure (ICD-10-PCS; principal; 2016-11-10)
DX: J18.9 Pneumonia, unspecified organism (principal); J96.01 Acute respiratory failure with hypoxia; N17.9 Acute kidney failure, unspecified; E86.0 Dehydration; E87.1 Hypo-osmolality and hyponatremia; R79.89 Other specified abnormal findings of blood chemistry; I27.2 Other secondary pulmonary hypertension; I27.82 Chronic pulmonary embolism; I48.91 Unspecified atrial fibrillation; I13.0 Hypertensive heart and chronic kidney disease with heart failure and stage 1 through stage 4 chronic kidney disease, or unspecified chronic kidney disease; I50.32 Chronic diastolic (congestive) heart failure; N18.3 Chronic kidney disease, stage 3 (moderate); D69.6 Thrombocytopenia, unspecified; D63.1 Anemia in chronic kidney disease; G47.33 Obstructive sleep apnea (adult) (pediatric); I87.2 Venous insufficiency (chronic) (peripheral); J45.909 Unspecified asthma, uncomplicated; K59.00 Constipation, unspecified; E78.5 Hyperlipidemia, unspecified; G47.00 Insomnia, unspecified; G62.9 Polyneuropathy, unspecified; I25.9 Chronic ischemic heart disease, unspecified; G40.909 Epilepsy, unspecified, not intractable, without status epilepticus; Y95 Nosocomial condition; E66.9 Obesity, unspecified; Z68.41 Body mass index [BMI] 40.0-44.9, adult; Z79.01 Long term (current) use of anticoagulants; Z82.49 Family history of ischemic heart disease and other diseases of the circulatory system; Z86.718 Personal history of other venous thrombosis and embolism; Z88.0 Allergy status to penicillin; Z88.1 Allergy status to other antibiotic agents; Z88.2 Allergy status to sulfonamides; Z91.19 Patient's noncompliance with other medical treatment and regimen; Z95.0 Presence of cardiac pacemaker
CPT/HCPCS: 71010; 76770; 78582; 80048; 80048 91; 81003; 82272; 83605; 84484; 85025; 85027; 87040; 87070; 87205; 87449; 93005; 94640; 94640 76; 94660; 94799; 99202; 99281; 99284; A9540; A9567; J0692; J1956; J7030; J7050

== ENCOUNTER 2016-11-14 09:27 | Inpatient (IN) | payer OTHER ==
[~2016-11-14] VITALS: Ht 185.4 cm; Wt 143.0 kg
[~2016-11-14 09:27] MED LIST changes: +INCRUSE ELLI62.5 MCG IH
[2016-11-14 09:59] LABS: EOSINOPHIL (%) 3.8 % (0-5); EOSINOPHIL COUNT 0.1 K/uL (0-0.3); HEMATOCRIT 28.6 % (38.0-50.0); IMMATURE GRANULOCYTE (%) 0.6 % (0.0-0.7); INSTRUMENT ABS NEUTROPHIL CT 2.2 K/uL; LYMPHOCYTE COUNT 0.6 K/uL (1.0-2.8); MCH 27.6 PG (29.0-34.0); MCHC 31.5 G/DL (30.0-36.0); MCV 87.7 FL (86-99); MEAN PLAT.VOLUME 8.7 uM^3 (9.0-12.4); MONOCYTE (%) 12.1 % (3-12); MONOCYTE COUNT 0.4 K/uL (0-0.8); NEUTROPHIL (%) 65.4 % (45-76); NEUTROPHIL COUNT 2.2 K/uL (1.8-6.4); PLATELET COUNT 149 K/uL (156-360); RBC DIS.WIDTH-CV 14.4 % (11.8-14.6); RBC DIS.WIDTH-SD 46.3 % (39-53); RED BLOOD COUNT 3.26 M/uL (4.00-5.50); WHITE BLOOD COUNT 3.4 K/uL (4.1-10.2)
[2016-11-14 10:09] LABS: CHLORIDE 107 mEq/L (99-109); POTASSIUM 4.3 mEq/L (3.7-5.4); SODIUM 137 mEq/L (136-147)
[2016-11-14 10:11] LABS: GLUCOSE 142 mg/dL (70-99)
[2016-11-14 10:13] LABS: ANION GAP 8 MEQ/L (2-14); TOTAL BILIRUBIN 0.3 mg/dL (0.0-1.0)
[2016-11-14 10:15] LABS: ALKALINE PHOSPHATASE 85 IU/L (3-129); GFR ESTIMATE (CALCULATED) 59 mL/min/
[2016-11-14 10:16] LABS: UREA NITROGEN (BUN) 24 mg/dL (9-23)
[2016-11-14] MEDS ORDERED: AMOXICILLIN500 MG PO (10:58)
[2016-11-14 14:01] LABS: BASE EXCESS 0.4 mEq/L (-3 to +3); BICARBONATE 25.4 mEq/L (22-26); CARBOXY HGB 2.2 % (0-5); COMMENTS - BLOOD GASES A+C+; METHEMOGLOBIN 1.1 % (0-1.5); PCO2 42 mm Hg (35-45); PO2 64 mm Hg (80-100); SITE LR; pH 7.39 (7.35-7.45)
[2016-11-14 14:02] LABS: DEVICE NC; O2 FLOW 3 L/MIN; TOTAL RESP RATE 22 resp/min
[2016-11-14 14:30] LABS: INTER. NORMALIZED RATIO 1.4; PROTHROMBIN TIME 15.5 SEC (10.2-12.9)
[2016-11-14 14:33] LABS: PTT 32.5 SEC (25-37)
[2016-11-14 15:45] VITALS: BP 129/68
[2016-11-14 16:25] LABS: TYPE OF FLUID THORACENTESIS
[2016-11-14 17:40] LABS: BODY FLUID EOSINOPHILS 0 % (0-25); BODY FLUID RBC'S 12000 /MM^3 (0-100); BODY FLUID WBC'S 2136 /MM^3 (0-500); MONONUCLEAR WBC'S 43 %; POLYNUCLEAR WBC'S 57 % (0-25)
[2016-11-14 19:05] LABS: TROPONIN-I < 0.01 ng/mL (0.0-0.30)
[2016-11-14 19:17] LABS: TROP-I INTERPRETATION NEGATIVE
[2016-11-14 19:21] VITALS: BP 161/78
[2016-11-14 23:31] VITALS: BP 158/75
[2016-11-14 23:56] LABS: METH RESISTANT S AUREUS PCR NEGATIVE (NEGATIVE)
[2016-11-15 00:12] LABS: PROBE CHECK PASS; SPECIMEN PROCESSING CONTROL PASS
[2016-11-15 01:05] LABS: TROP-I INTERPRETATION NEGATIVE; TROPONIN-I < 0.01 ng/mL (0.0-0.30)
[2016-11-15 03:28] VITALS: BP 160/77
[2016-11-15 06:27] LABS: HEMATOCRIT 29.3 % (38.0-50.0); MCHC 32.1 G/DL (30.0-36.0); MCV 87.2 FL (86-99); MEAN PLAT.VOLUME 8.7 uM^3 (9.0-12.4); PLATELET COUNT 174 K/uL (156-360); RBC DIS.WIDTH-CV 14.6 % (11.8-14.6); RBC DIS.WIDTH-SD 46.7 % (39-53); RED BLOOD COUNT 3.36 M/uL (4.00-5.50)
[2016-11-15 06:56] LABS: ANION GAP 8 MEQ/L (2-14); CHLORIDE 108 MEQ/L (99-109); GFR ESTIMATE (CALCULATED) > 59 mL/min/; GLUCOSE 107 mg/dL (70-99); POTASSIUM 4.4 MEQ/L (3.7-5.4); SAMPLE HEMOLYSIS CHECK 0; SAMPLE ICTERIC CHECK 0; SAMPLE LIPEMIA CHECK 0; SODIUM 140 MEQ/L (136-147); UREA NITROGEN (BUN) 26 mg/dL (9-23)
[2016-11-15 07:50] VITALS: BP 115/62
[2016-11-15 11:45] VITALS: BP 102/56
[2016-11-15 16:25] VITALS: BP 111/71
[2016-11-15] MEDS ORDERED: LEVAQUIN750 MG PO (16:41)
[2016-11-16 04:28] LABS: BODY FLUID PH 7.6 (())
== END 2016-11-15 17:40 | disposition home health service (06) | DRG 291 ==
LOC: EME 09:27 → 2EASTP 13:14 → EDOF 13:14 → ENRESERV 13:16 → 2EASTP 17:03
PROVIDERS: Emergency Medicine; Internal Medicine; Nurse Practitioner Adult Health; Radiology Diagnostic Radiology
PROC: 0W993ZZ Drainage of Right Pleural Cavity, Percutaneous Approach (ICD-10-PCS; principal; 2016-11-14)
DX: I13.0 Hypertensive heart and chronic kidney disease with heart failure and stage 1 through stage 4 chronic kidney disease, or unspecified chronic kidney disease (principal); I50.30 Unspecified diastolic (congestive) heart failure; N18.3 Chronic kidney disease, stage 3 (moderate); J18.9 Pneumonia, unspecified organism; Y95 Nosocomial condition; J96.01 Acute respiratory failure with hypoxia; N17.9 Acute kidney failure, unspecified; E86.0 Dehydration; E87.1 Hypo-osmolality and hyponatremia; D64.9 Anemia, unspecified; G47.33 Obstructive sleep apnea (adult) (pediatric); D69.6 Thrombocytopenia, unspecified; I87.2 Venous insufficiency (chronic) (peripheral); G47.00 Insomnia, unspecified; G62.9 Polyneuropathy, unspecified; I48.2 Chronic atrial fibrillation; K59.00 Constipation, unspecified; L51.1 Stevens-Johnson syndrome; L97.521 Non-pressure chronic ulcer of other part of left foot limited to breakdown of skin; E66.01 Morbid (severe) obesity due to excess calories; Z86.711 Personal history of pulmonary embolism; Z86.718 Personal history of other venous thrombosis and embolism; Z79.01 Long term (current) use of anticoagulants; Z95.0 Presence of cardiac pacemaker; Z99.81 Dependence on supplemental oxygen; Z91.19 Patient's noncompliance with other medical treatment and regimen; Z68.41 Body mass index [BMI] 40.0-44.9, adult; Z86.73 Personal history of transient ischemic attack (TIA), and cerebral infarction without residual deficits; Z89.421 Acquired absence of other right toe(s); Z88.1 Allergy status to other antibiotic agents; Z88.2 Allergy status to sulfonamides
CPT/HCPCS: 36600; 70450; 71010; 71250; 76942; 80048; 80053; 82803; 82945; 83605; 83615 91; 83880; 83986 90; 84157; 84484; 85025; 85027; 85610; 85730; 87040; 87070; 87075; 87116; 87205; 87206; 87641; 88108; 88305; 89051; 93005; 94799; 99202; 99281; 99285; J0692; J1940; J1956; J7050

== ENCOUNTER 2016-11-30 15:24 | Observation (INO) | payer OTHER ==
[~2016-11-30] VITALS: Ht 185.4 cm; Wt 142.3 kg
[~2016-11-30 15:24] MED LIST changes: +AMOXICILLIN500 MG PO
[2016-11-30 17:07] LABS: EOSINOPHIL (%) 3.1 % (0-5); EOSINOPHIL COUNT 0.1 K/uL (0-0.3); IMMATURE GRANULOCYTE (%) 0.4 % (0.0-0.7); INSTRUMENT ABS NEUTROPHIL CT 3.1 K/uL; LYMPHOCYTE COUNT 0.9 K/uL (1.0-2.8); MCH 27.6 PG (29.0-34.0); MCHC 31.5 G/DL (30.0-36.0); MCV 87.6 FL (86-99); MONOCYTE (%) 8.9 % (3-12); MONOCYTE COUNT 0.4 K/uL (0-0.8); NEUTROPHIL COUNT 3.1 K/uL (1.8-6.4); RBC DIS.WIDTH-CV 15.8 % (11.8-14.6); RBC DIS.WIDTH-SD 49.1 % (39-53); RED BLOOD COUNT 3.88 M/uL (4.00-5.50); WHITE BLOOD COUNT 4.5 K/uL (4.1-10.2)
[2016-11-30 17:14] LABS: CHLORIDE 106 mEq/L (99-109); POTASSIUM 4.2 mEq/L (3.7-5.4); SODIUM 141 mEq/L (136-147)
[2016-11-30 17:16] LABS: GLUCOSE 118 mg/dL (70-99)
[2016-11-30 17:17] LABS: ANION GAP 10 MEQ/L (2-14)
[2016-11-30 17:20] LABS: GFR ESTIMATE (CALCULATED) 46 mL/min/; UREA NITROGEN (BUN) 45 mg/dL (9-23)
[2016-11-30 18:13] LABS: MEAN PLAT.VOLUME 9.3 uM^3 (9.0-12.4); PLAT.SUFFICIENCY DECREASED
[2016-11-30 18:19] LABS: PLATELET COUNT 100 K/uL (156-360)
[2016-11-30 19:55] LABS: BICARBONATE 25.1 mEq/L (22-26); CARBOXY HGB 2.5 % (0-5); COMMENTS - BLOOD GASES A+C+; DEVICE NC; PCO2 37 mm Hg (35-45); PO2 75 mm Hg (80-100); SITE LR; pH 7.44 (7.35-7.45)
[2016-11-30 19:56] LABS: O2 FLOW 2 L/MIN
[2016-11-30 20:16] LABS: ADD MIUA? NO; BILIRUBIN NEGATIVE; BLOOD NEGATIVE; COLOR STRAW ((YELLOW)); GLUCOSE (STRIP) NEGATIVE; KETONES NEGATIVE; LEUKOCYTES NEGATIVE; NITRITE NEGATIVE; PROTEIN (STRIP) NEGATIVE; SPECIFIC GRAVITY 1.006 (1.000-1.030); UCUL ADDED? NO; UROBILINOGEN 0.2 MG/DL (0.2-1.0)
[2016-11-30 20:30] LABS: SERUM ETHYL ALCOHOL < 10 mg/dL
[2016-11-30 21:02] LABS: AMPHETAMINES QUANT VALUE 0 NG/ML; BARBITUATES QUANT VALUE 0 NG/ML; BENZODIAZEPINES QUANT VALUE 0 NG/ML; BENZODIAZEPINES, URINE SCREEN Negative (200 ng/mL); OPIATES QUANTITATIVE VALUE 0 NG/ML; PHENCYCLIDINE QUANT VALUE 0 NG/ML
[2016-11-30 21:10] VITALS: BP 134/67
[2016-11-30 23:00] VITALS: BP 117/63
[2016-12-01 03:00] VITALS: BP 104/64
[2016-12-01 08:30] VITALS: BP 115/73
[2016-12-01 08:51] LABS: EOSINOPHIL (%) 4.7 % (0-5); EOSINOPHIL COUNT 0.2 K/uL (0-0.3); HEMATOCRIT 33.1 % (38.0-50.0); IMMATURE GRANULOCYTE (%) 0.3 % (0.0-0.7); INSTRUMENT ABS NEUTROPHIL CT 2.1 K/uL; LYMPHOCYTE COUNT 0.8 K/uL (1.0-2.8); MCH 27.8 PG (29.0-34.0); MCHC 31.4 G/DL (30.0-36.0); MCV 88.5 FL (86-99); MEAN PLAT.VOLUME 9.3 uM^3 (9.0-12.4); MONOCYTE (%) 9.1 % (3-12); MONOCYTE COUNT 0.3 K/uL (0-0.8); NEUTROPHIL (%) 62.1 % (45-76); NEUTROPHIL COUNT 2.1 K/uL (1.8-6.4); PLATELET COUNT 107 K/uL (156-360); RBC DIS.WIDTH-CV 15.8 % (11.8-14.6); RBC DIS.WIDTH-SD 49.3 % (39-53); RED BLOOD COUNT 3.74 M/uL (4.00-5.50); WHITE BLOOD COUNT 3.4 K/uL (4.1-10.2)
[2016-12-01 09:19] LABS: ANION GAP 6 MEQ/L (2-14); CHLORIDE 107 MEQ/L (99-109); POTASSIUM 4.4 MEQ/L (3.7-5.4); SAMPLE HEMOLYSIS CHECK 0; SAMPLE ICTERIC CHECK 0; SAMPLE LIPEMIA CHECK 0; SODIUM 142 MEQ/L (136-147); TOTAL BILIRUBIN 0.7 MG/DL (0.0-1.0)
[2016-12-01 09:25] LABS: ALKALINE PHOSPHATASE 74 IU/L (3-129); GFR ESTIMATE (CALCULATED) 54 mL/min/; GLUCOSE 112 mg/dL (70-99); UREA NITROGEN (BUN) 35 mg/dL (9-23)
[2016-12-01 12:44] VITALS: BP 118/67
[2016-12-01 16:19] VITALS: BP 107/61
[2016-12-01] MEDS ORDERED: ALLOPURINOL100 MG PO (16:28)
[2016-12-01] MEDS ORDERED: AMLODIPINE BESY10 MG PO (16:31)
[2016-12-01] MEDS ORDERED: OXYCODONE HCL20 M1 PO ×2 (16:32→16:50)
[2016-12-01] MEDS ORDERED: TOLTERODINE TART2 MG PO (16:33)
[2016-12-01] MEDS ORDERED: LEVETIRACETAM750 MG PO (16:34)
[2016-12-01] MEDS ORDERED: XARELTO20 MG PO (16:35)
[2016-12-01] MEDS ORDERED: MYCOSTATIN1 APPLICAT TP (16:35)
[2016-12-01] MEDS ORDERED: FUROSEMIDE40 MG PO (16:36)
[2016-12-01] MEDS ORDERED: RAMIPRIL5 MG PO (16:37)
[2016-12-01] MEDS ORDERED: CARVEDILOL12.5 MG PO (16:37)
[2016-12-01] MEDS ORDERED: TOPIRAMATE100 MG PO (16:37)
[2016-12-01] MEDS ORDERED: POTASSIUM CHLO10 ME4 PO (16:38)
[2016-12-01] MEDS ORDERED: TIMOLOL MALEATE15 M1 BOTH EYES (16:38)
[2016-12-01] MEDS ORDERED: INCRUSE ELLI62.5 MCG IH (16:39)
[2016-12-01] MEDS ORDERED: DULOXETINE HCL60 MG PO (16:39)
[2016-12-01] MEDS ORDERED: TROSPIUM CHLORI20 MG PO (16:40)
[2016-12-01] MEDS ORDERED: NARCAN4 MG NS (17:05)
== END 2016-12-01 18:05 | disposition home or self-care (01) ==
LOC: EME → EDBD 15:24 → EDOF 19:07 → ENRESERV 19:11 → 4EAST 20:57
PROVIDERS: Emergency Medicine; Physician Assistant Medical; Student in an Organized Health Care Education/Training Program
DX: T40.2X1A Poisoning by other opioids, accidental (unintentional), initial encounter (principal); F11.20 Opioid dependence, uncomplicated; R09.02 Hypoxemia; G62.9 Polyneuropathy, unspecified; L51.1 Stevens-Johnson syndrome; E66.01 Morbid (severe) obesity due to excess calories; Z68.41 Body mass index [BMI] 40.0-44.9, adult; F12.10 Cannabis abuse, uncomplicated; G47.33 Obstructive sleep apnea (adult) (pediatric); Z91.19 Patient's noncompliance with other medical treatment and regimen; I11.0 Hypertensive heart disease with heart failure; I50.9 Heart failure, unspecified; Z82.49 Family history of ischemic heart disease and other diseases of the circulatory system; E78.5 Hyperlipidemia, unspecified; N40.0 Benign prostatic hyperplasia without lower urinary tract symptoms; Z88.0 Allergy status to penicillin; Z88.2 Allergy status to sulfonamides; Z88.1 Allergy status to other antibiotic agents; Z88.8 Allergy status to other drugs, medicaments and biological substances
CPT/HCPCS: 36600; 71010; 80048; 80053; 80306 90; 81003; 82803; 85025; 94640; 94660; 94799; 99281; 99285; G0378; G0480; J2310; J7030; J7040

== ENCOUNTER 2016-12-19 13:31 | Emergency (ER) | payer OTHER ==
[~2016-12-19] VITALS: Ht 185.4 cm; Wt 145.0 kg
[~2016-12-19 13:31] MED LIST changes: +CARVEDILOL12.5 MG PO; +DULOXETINE HCL60 MG PO; +MYCOSTATIN1 APPLICAT TP; +NARCAN4 MG NS; +POTASSIUM CHLO10 ME4 PO; +TOPIRAMATE100 MG PO; +TROSPIUM CHLORI20 MG PO
[2016-12-19 14:46] VITALS: BP 142/93
== END 2016-12-19 14:46 | disposition home or self-care (01) ==
LOC: EME 13:31
PROC: 0H9NXZZ Drainage of Left Foot Skin, External Approach (ICD-10-PCS; principal; 2016-12-19)
DX: S90.425A Blister (nonthermal), left lesser toe(s), initial encounter (principal); I87.8 Other specified disorders of veins; E78.5 Hyperlipidemia, unspecified; I10 Essential (primary) hypertension; I25.10 Atherosclerotic heart disease of native coronary artery without angina pectoris; Z87.2 Personal history of diseases of the skin and subcutaneous tissue; J45.909 Unspecified asthma, uncomplicated; M10.9 Gout, unspecified; Z89.421 Acquired absence of other right toe(s); Z95.0 Presence of cardiac pacemaker; Z88.2 Allergy status to sulfonamides; Z88.1 Allergy status to other antibiotic agents
CPT/HCPCS: 99281; 99284

== ENCOUNTER 2017-09-05 11:19 | Day surgery (SDC) | payer OTHER ==
[~2017-09-05] VITALS: Ht 185.4 cm; Wt 104.3 kg
[~2017-09-05 11:19] MED LIST changes: +KLOR-CON SPRIN10 MEQ PO; +SEROQUEL100 MG PO
[2017-09-05 11:56] VITALS: BP 140/69
[2017-09-05 11:57] VITALS: BP 140/69
[2017-09-05 17:00] VITALS: BP 160/74
[2017-09-05 19:52] VITALS: BP 130/68
[2017-09-05 23:39] VITALS: BP 123/67
[2017-09-06 05:05] VITALS: BP 135/76
[2017-09-06 07:29] VITALS: BP 134/70
[2017-09-06 07:58] LABS: HEMATOCRIT 32.6 % (38.0-50.0); HEMOGLOBIN 10.1 G/DL (12.5-16.6); MCV 93.7 FL (86-99); PLATELET COUNT 125 K/uL (156-360); RBC DIS.WIDTH-CV 14.6 % (11.8-14.6); RBC DIS.WIDTH-SD 49.5 % (39-53); RED BLOOD COUNT 3.48 M/uL (4.00-5.50); WHITE BLOOD COUNT 4.1 K/uL (4.1-10.2)
[2017-09-06 08:13] LABS: CHLORIDE 108 MEQ/L (99-109); CREATININE 1.5 MG/DL (0.6-1.3); GFR ESTIMATE (CALCULATED) 49 mL/min/ (58.99-99999); GLUCOSE 124 mg/dL (70-99); POTASSIUM 4.2 MEQ/L (3.7-5.4); SODIUM 141 MEQ/L (136-147); UREA NITROGEN (BUN) 22 mg/dL (9-23)
[2017-09-06 12:11] VITALS: BP 129/78
[2017-09-06] MEDS ORDERED: DOXYCYCLINE HY100 M3 PO (13:57)
== END 2017-09-06 15:31 | disposition home or self-care (01) ==
LOC: SDC 11:19 → ENRESERV 14:57 → 3EAST 15:03 → 2SOUTH 15:03 → ENRESERV 15:28 → 3EAST 16:06 → SDC 16:21 → 3EAST 09-06 15:31
PROVIDERS: Hospitalist
PROC: 0Y6M0Z4 Detachment at Right Foot, Complete 1st Ray, Open Approach (ICD-10-PCS; principal; 2017-09-05)
DX: M86.9 Osteomyelitis, unspecified (principal); I89.0 Lymphedema, not elsewhere classified; E66.01 Morbid (severe) obesity due to excess calories; Z68.41 Body mass index [BMI] 40.0-44.9, adult; I48.2 Chronic atrial fibrillation; I13.0 Hypertensive heart and chronic kidney disease with heart failure and stage 1 through stage 4 chronic kidney disease, or unspecified chronic kidney disease; I50.32 Chronic diastolic (congestive) heart failure; J44.9 Chronic obstructive pulmonary disease, unspecified; Z86.711 Personal history of pulmonary embolism; L51.1 Stevens-Johnson syndrome; N18.3 Chronic kidney disease, stage 3 (moderate); G47.33 Obstructive sleep apnea (adult) (pediatric); Z86.73 Personal history of transient ischemic attack (TIA), and cerebral infarction without residual deficits; D64.9 Anemia, unspecified; F41.9 Anxiety disorder, unspecified; M10.9 Gout, unspecified; H40.9 Unspecified glaucoma; Z86.19 Personal history of other infectious and parasitic diseases; Z95.0 Presence of cardiac pacemaker; Z88.0 Allergy status to penicillin; Z88.1 Allergy status to other antibiotic agents; Z88.2 Allergy status to sulfonamides; Z88.8 Allergy status to other drugs, medicaments and biological substances
CPT/HCPCS: 80048; 80177 90; 85027; 87070; 87075; 87205; 87641; 88305; 94640 76; 99202; G0378; J3010; S0020